=== PATIENT | male | born 1985 | race Caucasian/White ===

== ENCOUNTER 2019-01-15 09:02 | Emergency (ER) | payer SELFPAY ==
[~2019-01-15] VITALS: Ht 167.6 cm; Wt 94.9 kg
[~2019-01-15 09:02] MED LIST: LORA-441 PO
[2019-01-15 09:12] VITALS: Ht 167.6 cm; Wt 94.9 kg
[2019-01-15] MEDS ORDERED: METOCLOPRAMIDE 10 MG INJ IV STA (10:17)
[2019-01-15] MEDS ORDERED: DIPHENHYDRAMINE 50 MG INJ IV STA (10:17)
[2019-01-15] MEDS ORDERED: SOD CHLORIDE 0.9% 1,000 ML IV STA (10:17)
[2019-01-15] MEDS ORDERED: KETOROLAC 30 MG INJ IV STA (10:17)
--- NOTE | 2019-01-15 10:50 | ERD ---
ER Documentation Chief Complaint Chief Complaint C/o left side facial pain since yesterday morning, no injury. HPI This is a 33-year-old male with a nonsignificant past medical history presents ED with complaints of left-sided headache since yesterday. Patient rates headache at 7 out of 10 and states that it waxes and wanes in severity. Patient admits to having similar headaches in the past. Patient admits to some facial pain associated with this headache. Denies blurry vision, changes in vision, worse headache of life, confusion, weakness, fever, chills no other symptoms ROS All systems reviewed and are negative except as per history of present illness. Medications Home Meds Reported Medications Lorazepam* (Ativan*) 0.5 Mg Tablet, PO TID 12/15/12 Allergies Allergies: Coded Allergies: No Known Allergy (Unverified , 12/15/12) PMhx/Soc History of Surgery: No Anesthesia Reaction: No Hx Neurological Disorder: No Hx Respiratory Disorders: No Hx Cardiac Disorders: No Hx Psychiatric Problems: No Hx Miscellaneous Medical Probl: No Hx Alcohol Use: No Hx Substance Use: No Hx Tobacco Use: No FmHx Family History: No diabetes Physical Exam Vitals Vital Signs Date Temp Pulse Resp B/P (MAP) Pulse Ox O2 O2 Flow FiO2 Time Delivery Rate 01/15/19 97.6 68 18 129/83 100 09:12 (98) Physical Exam Physical Exam Vitals signs: Reviewed by me. General: Well developed, well nourished, in no acute distress. Patient is awake and alert. Head: Normocephalic, atraumatic. Eyes: Normal conjunctiva, Pupils PERRLA, EOM intact grossly ENT: Pharynx is clear, Moist mucous membranes, external ears, nose and mouth n ormal Neck: Supple, no masses, lymphadenopathy or JVD Respiratory: Clear to auscultation bilaterally with no wheezing, rhonchi, rales, no distress Cardiovascular: RRR, no murmurs, rubs, or gallops MSK: No edema, no unilateral swelling, 5/5 strength Neurologic: Alert and oriented, moving all extremities, normal speech, no focal weakness, no cerebellar signs. Normal mentation Cranial nerves II through XII intact bilaterally Neuro: M/S: Alert and oriented Face: EOMI, face and pharynx with normal sensation and function Motor: Normal strength throughout Sensation: Normal sensation throughout Speech: Normal Cerebel: Normal coordination Normal gait Normal finger to nose DTR: 2+ and symmetric upper/lower extremities Skin: warm and dry, No rash Psych: Normal mood Result Diagram: 01/15/19 1039 01/15/19 1039 Results 24 hrs Laboratory Tests Test 01/15/19 10:39 White Blood Count 7.9 10^3/ul Red Blood Count 5.79 10^6/ul Hemoglobin 16.6 g/dl Hematocrit 49.5 % Mean Corpuscular Volume 85.5 fl Mean Corpuscular Hemoglobin 28.7 pg Mean Corpuscular Hemoglobin Concent 33.5 g/dl Red Cell Distribution Width 12.4 % Platelet Count 244 10^3/UL Mean Platelet Volume 10.4 fl Immature Granulocytes % 0.400 % Neutrophils % 60.9 % Lymphocytes % 30.1 % Monocytes % 6.6 % Eosinophils % 1.4 % Basophils % 0.6 % Nucleated Red Blood Cells % 0.0 /100WBC Immature Granulocytes # 0.030 10^3/ul Neutrophils # 4.8 10^3/ul Lymphocytes # 2.4 10^3/ul Monocytes # 0.5 10^3/ul Eosinophils # 0.1 10^3/ul Basophils # 0.1 10^3/ul Nucleated Red Blood Cells # 0.0 10^3/ul Prothrombin Time 12.4 Sec Prothrombin Time Ratio 1.0 INR International Normalized Ratio 0.91 Activated Partial Thromboplast Time 26.5 Sec Sodium Level 143 mmol/L Potassium Level 4.5 mmol/L Chloride Level 102 mmol/L Carbon Dioxide Level 30 mmol/L Anion Gap 11 Blood Urea Nitrogen 11 mg/dl Creatinine 0.89 mg/dl Est Glomerular Filtrat Rate mL/min > 60 mL/min Glucose Level 106 mg/dl Calcium Level 9.4 mg/dl Current Medications Medications Dose Sig/Cleo Start Time Status Last (Trade) Ordered Route PRN Stop Time Admin Dose Reason Admin Sodium 1,000 ml @ Q1H STAT 01/15/19 DC 01/15/19 Chloride 1,000 mls/hr IV 10:17 10:50 01/15/19 11:16 10 mg ONCE STAT 01/15/19 DC 01/15/19 Metoclopramid IV 10:17 10:51 e HCl 01/15/19 10:22 (Reglan) Ketorolac 30 mg ONCE STAT 01/15/19 DC 01/15/19 Tromethamine IV 10:17 10:51 (Toradol) 01/15/19 10:22 25 mg ONCE STAT 01/15/19 DC 01/15/19 Diphenhydrami IV 10:17 10:51 ne HCl 01/15/19 10:22 (Benadryl) Procedures/MDM Lab interpretation: CBC shows no evidence of hemorrhage or infection Chemistry shows no evidence of significant electrolyte abnormalities or renal insufficiency Coagulation study showed no concerning coagulopathy ER COURSE: The patient was given IV normal saline, Benadryl, Reglan and Toradol The medication was well tolerated and the patient reports improvement in symptoms. The patient was stable throughout ED course. I kept the patient and/or family informed of laboratory and diagnostic imaging results throughout the emergency room course. The patient was promptly evaluated and a treatment plan was devised based on H&P and other data. This plan was discussed with the patient who agreed and had no further questions or concerns prior to discharge. MEDICAL DECISION MAKING: This is a 33-year-old male presents ED with headache since yesterday. The patient's headache is unlikely related to serious etiology. The patient does not exhibit any clinical signs or symptoms, and has no risk factors to suggest headache etiology such as subarachnoid hemorrhage, acute vertebral or carotid dissection, intracranial mass, epidural, subdural hematoma, dural venous sinus thrombosis, giant cell arteritis, CVA, encephalitis, meningitis, or pseudotumor cerebri. Patient's vitals are stable and patient can be managed with close outpatient follow-up. Patient was advised to follow-up with her primary care in the next 48 hours. Return to ED with any worsening symptoms. DISPOSITION PLAN: We discussed follow up with the patient's primary care doctor within 24 to 48 hours. Patient counseled regarding my diagnostic impression and care plan. Prior to discharge all questions answered. Pt agrees with treatment plan and understands strict return precautions. Precautionary instructions provided including instructions to return to the ER if not improving or for any worsening or changing symptoms or concerns. SPECIALIST FOLLOW UP RECOMMENDED: None Patient has been advised to follow up with primary care in 1-2 days. Disclaimer: Inadvertent spelling and grammatical errors are likely due to EHR/dictation software use and do not reflect on the overall quality of patient care. Also, please note that the electronic time recorded on this note does not necessarily reflect the actual time of the patient encounter. Departure Diagnosis: Primary Impression: Headache Headache type: unspecified Headache chronicity pattern: acute headache Intractability: not intractable Qualified Codes: R51 - Headache Condition: Stable Patient Instructions: Self-Care for Headaches [facility] Additional Instructions: Paciente aconseja volver a Departamento de urgencias inmediatamente para sntomas nuevos o que empeoran . Paciente aconseja posteriores con el PCP en 1-2 lemus . Paciente verbaliza la comprehensin y est de acuerdo con el tratamiento y el curso de accin. Si el paciente no tiene ninguna de atencin primaria pueden seguir con [facility] [id number] [place] [address] o [facility] + [address] [address] LILI DUKE PA-C Jan 15, 2019 10:50
[2019-01-15] MEDS ORDERED: IBUP-1542 PO (11:18)
[2019-01-15 12:20] VITALS: BP 114/68; PULSE 64; RESP 18
== END 2019-01-15 12:20 | disposition home or self-care (01) ==
LOC: FTE 09:02
DX: R51 Headache (principal)
CPT/HCPCS: 36415; 80048; 85025; 85610; 85730; 96361; 96374; 96375; 99284; J1200; J1885; J2765; J7030